=== PATIENT | male | born 1960 | race Caucasian/White ===

== ENCOUNTER → 2017-10-09 | Outpatient (CLI) | payer OTHER ==
--- NOTE | 2017-10-09 14:01 | XR ---
EXAMINATION TYPE: XR knee complete RT DATE OF EXAM: 10/09/2017 COMPARISON: NONE HISTORY: 57-year-old male right knee strain after injury at work 4 days ago TECHNIQUE: 3 views FINDINGS: A moderate joint effusion. Extensor mechanism appears intact. Degenerative spurring noted in the medi al and patellofemoral compartments. No acute fracture, subluxation, or dislocation seen. IMPRESSION: 1. Degenerative changes in the medial and patellofemoral compartments. 2. Moderate knee joint effusion. If concern for internal derangement, MRI can be performed. 3. Otherwise, no acute osseous abnormality seen.
== END | disposition home or self-care (01) ==
LOC: RADXRMAIN 13:41
PROVIDERS: ATTEND Emergency Medicine
DX: M17.11 Unilateral primary osteoarthritis, right knee (principal)

== ENCOUNTER → 2017-10-19 | Outpatient (CLI) | payer OTHER ==
--- NOTE | 2017-10-19 08:31 | MR ---
EXAMINATION TYPE: MR knee RT wo con DATE OF EXAM: 10/19/2017 COMPARISON: Plain film 10/09/2017 HISTORY: Rt knee pain TECHNIQUE: Multiplanar, multisequence imaging of the right knee is performed without IV contrast. FINDINGS: MEDIAL AND LATERAL MENISCUS: Stellate increased signal present within the posterior horn of the media l meniscus is noted, some linear increased signal also present in the posterior horn of the lateral m eniscus possibly extending to the articular surface interval image 21 and 13 CRUCIATE LIGAMENTS: The anterior and posterior cruciate ligaments are intact and unremarkable. COLLATERAL LIGAMENTS: The medial collateral ligament and lateral collateral ligament complex are inta ct and unremarkable. EXTENSOR MECHANISM: Visualized quadriceps and patellar tendons are intact. EFFUSION: Suprapatellar joint effusion is present. POPLITEAL CYST: No popliteal/ivan cyst. 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 Joint effusion.
== END | disposition home or self-care (01) ==
LOC: RADMRIMAIN 06:54
PROVIDERS: ATTEND Emergency Medicine
DX: M17.11 Unilateral primary osteoarthritis, right knee (principal)